=== PATIENT | female | born 1960 | race Caucasian/White ===

== ENCOUNTER 2019-02-25 06:27 | Inpatient (IN) | payer MEDICARE, OTHER ==
[~2019-02-25] VITALS: Ht 154.9 cm; Wt 78.4 kg
[2019-02-25] MEDS ORDERED: SODIUM CHLORIDE 0.9% 2,150 ML IV ONE (06:32)
[2019-02-25] MEDS ORDERED: DOXYCYCLINE HYCLATE 100 MG in DEXTROSE 5%-WATER 100 ML IV ONE (06:45)
[2019-02-25] MEDS ORDERED: 0.9% SODIUM CHLORIDE 10 ML SYRINGE IVP PRN (06:45)
[2019-02-25] MEDS ORDERED: IBUPROFEN 100 MG/5 ML SUSPENSION UDCUP GT ONE (06:45)
[2019-02-25] MEDS ORDERED: PIPERACILLIN SODIUM/TAZOBACTAM 4.5 GM in DEXTROSE 5%-WATER 100 ML IV ONE (06:45)
[2019-02-25] MEDS ORDERED: ACETAMINOPHEN 650 MG/20.3 ML SOLUTION UDCUP GT ONE (06:45)
[2019-02-25] MEDS ORDERED: VANCOMYCIN HCL 1 GM/D5% WATER 200 ML IV ONE ×2 (06:45→10:00)
[2019-02-25] MEDS ORDERED: [UNRECOGNIZED DRUG - CODE] GT (06:46)
[2019-02-25] MEDS ORDERED: FERSL PO (06:46)
[2019-02-25] MEDS ORDERED: LATA7.5D OS (06:46)
[2019-02-25] MEDS ORDERED: LANS30TA4 GT (06:46)
[2019-02-25] MEDS ORDERED: AMIN30LI28 PO (06:46)
[2019-02-25] MEDS ORDERED: LEVE500S9 GT (06:46)
[2019-02-25] MEDS ORDERED: HYDR5TAB7 GT (06:46)
[2019-02-25] MEDS ORDERED: BACL10TA PO (06:47)
[2019-02-25] MEDS ORDERED: BACL10TA GT (06:47)
[2019-02-25 06:54] LABS: HEMATOCRIT 24.1 % (36-46); HEMOGLOBIN 7.5 g/dL (12.0-16.0); MEAN CORPUSCULAR HEMOGLOBIN 24.2 pg (26.0-34.0); MEAN CORPUSCULAR HGB CONC 30.9 G/dL (31.0-37.0); MEAN CORPUSCULAR VOLUME 78 fL (80-100); PLATELET COUNT (AUTO) 531 K/uL (150-450); RED BLOOD CELL COUNT(AUTO) 3.09 MIL/uL (4.00-5.20); RED CELL DISTRIBUTION WIDTH 16.2 % (11.5-14.5)
[2019-02-25 06:58] LABS: ANION GAP 10 mmol/L (8-16); CALCIUM, TOTAL 8.8 mg/dL (8.8-10.5); CARBON DIOXIDE 25 mmol/L (22-29); CHLORIDE 102 mmol/L (98-107); CREATININE 1.06 mg/dL (0.60-1.30); GLOMERULAR FILTR. RATE CALC 53 mL/min (>60); GLUCOSE,RANDOM 152 mg/dL (70-110); POTASSIUM 4.8 mmol/L (3.5-5.1); SODIUM SERUM 137 mmol/L (136-145); UREA NITROGEN, BLOOD 31 mg/dL (7-18)
[2019-02-25 07:04] LABS: B-TYPE NATRIURETIC PEPTIDE 1670 pg/mL (0-100)
[2019-02-25 07:06] LABS: LACTIC ACID 5.4 mmol/L (0.4-2.0)
[2019-02-25 07:11] LABS: ALANINE AMINOTRANSFERASE 42 U/L (12-78); ALKALINE PHOSPHATASE 940 U/L (46-116); ASPARTATE AMINOTRANSFERASE 72 U/L (15-37); BILIRUBIN,TOTAL 0.9 mg/dL (0.1-1.0); CREATINE KINASE, TOTAL ONLY 49 U/L (26-192); TOTAL PROTEIN, SERUM 7.3 g/dL (6.4-8.2)
[2019-02-25 07:26] LABS: APPEARANCE,URINE CLOUDY (CLEAR); BILIRUBIN,URINE NEGATIVE (NEGATIVE); GLUCOSE, URINE (UA) NEGATIVE (NEGATIVE); KETONES,URINE NEGATIVE (NEGATIVE); LEUKOCYTE ESTERASE ,URINE MODERATE (NEGATIVE); NITRATE,URINE NEGATIVE (NEGATIVE); OCCULT BLOOD,URINE SMALL (NEGATIVE); PROTEIN,URINE SEE CONFIRM (NEGATIVE)
[2019-02-25 07:47] LABS: BAND NEUTROPHILS % (MANUAL) 19 % (0-5); LYMPHOCYTES % (MANUAL) 7 % (22-44); MONOCYTES % (MANUAL) 9 % (2-9); SEGMENTED NEUTROPHILS % 65 % (40-70)
[2019-02-25 07:48] LABS: INFLUENZA TYPE A NEGATIVE FOR TYPE A (NEGATIVE); INFLUENZA TYPE B NEGATIVE FOR TYPE B (NEGATIVE)
[2019-02-25 07:57] LABS: BACTERIA,URINE Moderate /HPF (None Seen); SULFOSALICYLIC ACID,URINE 3+ (Negative)
[2019-02-25 07:58] LABS: AMORPHOUS SEDIMENT,UR Moderate /LPF (None Seen); RENAL EPITHELIAL CELLS,URINE Few /LPF (None Seen); SQUAMOUS EPITHELIAL CELL,UR Few /LPF (None Seen)
[2019-02-25 08:32] LABS: ABG A-A DIFF O2 484.5 mmHg (10-20.0); ABG BASE EXCESS -1.1 mmol/L (-2.0-3.0); ABG CARBOXYHEMOGLOBIN 0.5 % (0.0-1.5); ABG HCO3 23.5 mmol/L (22.0-26.0); ABG OXYGEN CONTENT 11.2 mL/dL (15.0-23.0); ABG OXYGEN SATURATION 99.1 % (95.0-98.0); ABG OXYHEMOGLOBIN 98.6 % (94.0-100.0); ABG PCO2 53 mmHg (35-45); ABG PH 7.297 (7.35-7.450); PO2, ARTERIAL BG 171.4 mmHg (79.0-87.0); SOURCE, BLOOD GAS ARTERIAL; TEMPERATURE, FAHRENHEIT, BG 101.2 FAHREN (96.0-98.6)
[2019-02-25 08:33] LABS: ABG TOTAL HEMOGLOBIN 7.8 G/dL (12.0-18.0); O2 DEVICE,BLOOD GAS BIPAP (ROOM AIR); SITE, BLOOD GAS LFT RADIAL
[2019-02-25] MEDS ORDERED: MAGNESIUM HYDROXIDE SUSPENSION 30 ML UDCUP PO PRN (08:45)
[2019-02-25] MEDS ORDERED: ACETAMINOPHEN 325 MG TABLET PO PRN (08:45)
[2019-02-25] MEDS ORDERED: PIPERACILLIN/TAZO 3.375 GM/D5W 50 ML IV SCH (09:00)
[2019-02-25] MEDS: DOCUSATE SODIUM 100 MG CAPSULE PO SCH ×2 (09:00→22:10)
[2019-02-25] MEDS ORDERED: SODIUM CHLORIDE 0.9% 1,000 ML IV ONE (09:00)
[2019-02-25] MEDS: LevETIRAcetam 500 MG TABLET PO SCH ×2 (09:27→22:10)
[2019-02-25] MEDS: FAMOTIDINE 20 MG TABLET PO SCH (09:27)
[2019-02-25] MEDS: ASPIRIN 81 MG CHEWABLE TABLET PO SCH (10:45)
[2019-02-25] MEDS ORDERED: PROPOFOL 1000 MG/ISO-OSM 100 ML IV PRN ×3 (11:00→16:38)
[2019-02-25] MEDS ORDERED: PROPOFOL 1000 MG/ISO-OSM 100 ML IV ONE (11:00)
[2019-02-25] MEDS ORDERED: ROCURONIUM BROMIDE 10 MG/ML 5 ML VIAL IVP ONE (11:00)
[2019-02-25] MEDS: PIPERACILLIN/TAZO 3.375 GM/D5W 50 ML IV SCH ×2 (14:30→20:16)
[2019-02-25] MEDS: HEPARIN SODIUM,PORCINE 5,000 UNITS/ML VIAL SQ SCH (16:29)
[2019-02-25 16:47] VITALS: BP 102/51
[2019-02-25 18:00] VITALS: BP 93/45
[2019-02-25] MEDS ORDERED: SODIUM CHLORIDE 0.9% 250 ML IV ONE (19:11)
[2019-02-25 20:00] VITALS: BP 96/60
[2019-02-25] MEDS ORDERED: VANCOMYCIN HCL 500 MG in DEXTROSE 5%-WATER 100 ML IV SCH (20:00)
[2019-02-25] MEDS: VANCOMYCIN HCL 750 MG in DEXTROSE 5%-WATER 250 ML IV SCH (21:41)
[2019-02-25 22:00] VITALS: BP 109/67
[2019-02-25] MEDS: ATORVASTATIN CALCIUM 20 MG TABLET PO SCH (22:11)
[2019-02-26] VITALS (14 sets, daily range): BP systolic 97–121; BP diastolic 55–75
[2019-02-26] MEDS: HEPARIN SODIUM,PORCINE 5,000 UNITS/ML VIAL SQ SCH ×3 (00:14→15:21)
[2019-02-26] MEDS: PIPERACILLIN/TAZO 3.375 GM/D5W 50 ML IV SCH ×4 (02:01→20:40)
[2019-02-26 04:52] LABS: HEMATOCRIT 22.7 % (36-46); MEAN CORPUSCULAR HEMOGLOBIN 23.3 pg (26.0-34.0); MEAN CORPUSCULAR HGB CONC 29.6 G/dL (31.0-37.0); MEAN CORPUSCULAR VOLUME 79 fL (80-100); PLATELET COUNT (AUTO) 413 K/uL (150-450); RED BLOOD CELL COUNT(AUTO) 2.88 MIL/uL (4.00-5.20); RED CELL DISTRIBUTION WIDTH 16.4 % (11.5-14.5)
[2019-02-26 05:27] LABS: ALBUMIN 1.8 g/dL (3.4-5.0); BILIRUBIN,TOTAL 1.4 mg/dL (0.1-1.0); CALCIUM, TOTAL 8.4 mg/dL (8.8-10.5); CREATININE 1.17 mg/dL (0.60-1.30); MAGNESIUM 1.8 mg/dL (1.80-2.40); TOTAL PROTEIN, SERUM 5.9 g/dL (6.4-8.2)
[2019-02-26 05:32] LABS: HEMOGLOBIN 6.7 g/dL (12.0-16.0)
[2019-02-26 05:35] LABS: BAND NEUTROPHILS % (MANUAL) 33 % (0-5); LYMPHOCYTES % (MANUAL) 6 % (22-44); MONOCYTES % (MANUAL) 5 % (2-9); MYELOCYTES % 1 % (0-0); SEGMENTED NEUTROPHILS % 55 % (40-70)
[2019-02-26] MEDS: VANCOMYCIN HCL 750 MG in DEXTROSE 5%-WATER 250 ML IV SCH ×2 (07:35→20:40)
[2019-02-26] MEDS: ASPIRIN 81 MG CHEWABLE TABLET PO SCH (08:06)
[2019-02-26] MEDS: FAMOTIDINE 20 MG TABLET PO SCH (08:07)
[2019-02-26] MEDS: DOCUSATE SODIUM 100 MG CAPSULE PO SCH ×2 (08:07→20:40)
[2019-02-26] MEDS: LevETIRAcetam 100 MG/ML 5 ML SOLUTION UDCUP PO SCH ×2 (09:20→20:41)
[2019-02-26] MEDS ORDERED: SODIUM CHLORIDE 0.9% 250 ML IV ONE (12:41)
[2019-02-26 15:19] LABS: ABG A-A DIFF O2 152.3 mmHg (10-20.0); ABG BASE EXCESS 0.6 mmol/L (-2.0-3.0); ABG CARBOXYHEMOGLOBIN 0.3 % (0.0-1.5); ABG METHEMOGLOBIN 0.3 % (0.0-1.5); ABG OXYGEN CONTENT 11.6 mL/dL (15.0-23.0); ABG OXYGEN SATURATION 96.5 % (95.0-98.0); ABG OXYHEMOGLOBIN 95.9 % (94.0-100.0); ABG PCO2 39 mmHg (35-45); ABG PH 7.426 (7.35-7.450); ABG TOTAL HEMOGLOBIN 8.5 G/dL (12.0-18.0); O2 DEVICE,BLOOD GAS VENTILATOR (ROOM AIR); PEEP,BG 5 cm H2O; PO2, ARTERIAL BG 87.9 mmHg (79.0-87.0); SITE, BLOOD GAS RT RADIAL; SOURCE, BLOOD GAS ARTERIAL; TEMPERATURE, FAHRENHEIT, BG 99.3 FAHREN (96.0-98.6); VT, ABG 450 ml
[2019-02-26] MEDS: SODIUM CHLORIDE 0.9% 1,000 ML IV SCH (15:29)
[2019-02-26] MEDS: PROPOFOL 1000 MG/ISO-OSM 100 ML IV PRN (18:23)
[2019-02-26] MEDS: ATORVASTATIN CALCIUM 20 MG TABLET PO SCH (20:41)
[2019-02-27] VITALS: BP 100/57
[2019-02-27] MEDS: HEPARIN SODIUM,PORCINE 5,000 UNITS/ML VIAL SQ SCH ×3 (00:30→16:12)
[2019-02-27] MEDS: PIPERACILLIN/TAZO 3.375 GM/D5W 50 ML IV SCH ×4 (02:08→20:18)
[2019-02-27 04:00] VITALS: BP 113/64
[2019-02-27 04:59] LABS: HEMATOCRIT 25.2 % (36-46); HEMOGLOBIN 7.8 g/dL (12.0-16.0); MEAN CORPUSCULAR HEMOGLOBIN 24.2 pg (26.0-34.0); MEAN CORPUSCULAR HGB CONC 30.9 G/dL (31.0-37.0); MEAN CORPUSCULAR VOLUME 78 fL (80-100); PLATELET COUNT (AUTO) 372 K/uL (150-450); RED BLOOD CELL COUNT(AUTO) 3.21 MIL/uL (4.00-5.20); RED CELL DISTRIBUTION WIDTH 16.8 % (11.5-14.5)
[2019-02-27] MEDS: PROPOFOL 1000 MG/ISO-OSM 100 ML IV PRN ×4 (05:19→22:53)
[2019-02-27] MEDS: SODIUM CHLORIDE 0.9% 1,000 ML IV SCH ×2 (05:20→17:21)
[2019-02-27 05:30] LABS: ALBUMIN 1.5 g/dL (3.4-5.0); BILIRUBIN,TOTAL 1.1 mg/dL (0.1-1.0); CALCIUM, TOTAL 7.9 mg/dL (8.8-10.5); CREATININE 1.14 mg/dL (0.60-1.30); POTASSIUM 3.3 mmol/L (3.5-5.1); TOTAL PROTEIN, SERUM 6.2 g/dL (6.4-8.2); VANCOMYCIN,RANDOM 32.3 mcg/mL (25.0-50.0)
[2019-02-27 07:23] LABS: BAND NEUTROPHILS % (MANUAL) 26 % (0-5); LYMPHOCYTES % (MANUAL) 12 % (22-44); SEGMENTED NEUTROPHILS % 62 % (40-70)
[2019-02-27] MEDS: VANCOMYCIN HCL 750 MG in DEXTROSE 5%-WATER 250 ML IV SCH ×2 (07:57→20:18)
[2019-02-27 08:00] VITALS: BP 105/64
[2019-02-27] MEDS ORDERED: POTASSIUM CHLORIDE 20 MEQ ER TABLET PO PRN (08:00)
[2019-02-27] MEDS: POTASSIUM CHL 10 MEQ/WATER 50 ML IV PRN ×6 (08:03→23:21)
[2019-02-27] MEDS ORDERED: FUROSEMIDE 20 MG/2 ML VIAL IVP ONE (09:00)
[2019-02-27] MEDS: DOCUSATE SODIUM 100 MG CAPSULE PO SCH ×2 (09:00→20:19)
[2019-02-27] MEDS: FAMOTIDINE 20 MG TABLET PO SCH (09:09)
[2019-02-27] MEDS: ASPIRIN 81 MG CHEWABLE TABLET PO SCH (09:09)
[2019-02-27] MEDS: LevETIRAcetam 100 MG/ML 5 ML SOLUTION UDCUP PO SCH ×2 (09:10→20:18)
[2019-02-27] MEDS ORDERED: HALOPERIDOL LACTATE 5 MG/ML VIAL IVP PRN (11:45)
[2019-02-27 12:00] VITALS: BP 102/62
[2019-02-27] MEDS ORDERED: SODIUM CHLORIDE 0.9% 250 ML IV ONE (15:46)
[2019-02-27 16:00] VITALS: BP 99/57
[2019-02-27] MEDS: FentaNYL CITRATE PF 500 MCG in DEXTROSE 5%-WATER 90 ML IV PRN (16:18)
[2019-02-27] MEDS ORDERED: PHENYLEPHRINE 200 MG/D5%-WATER 250 ML IV PRN (17:14)
[2019-02-27 20:00] VITALS: BP 109/68
[2019-02-27] MEDS: ATORVASTATIN CALCIUM 20 MG TABLET PO SCH (20:18)
[2019-02-28] VITALS: BP 85/52
[2019-02-28] MEDS: HEPARIN SODIUM,PORCINE 5,000 UNITS/ML VIAL SQ SCH ×3 (00:17→17:44)
[2019-02-28] MEDS: FentaNYL CITRATE PF 500 MCG in DEXTROSE 5%-WATER 90 ML IV PRN ×4 (00:20→19:16)
[2019-02-28] MEDS: PIPERACILLIN/TAZO 3.375 GM/D5W 50 ML IV SCH ×4 (02:28→20:12)
[2019-02-28 04:00] VITALS: BP 111/72
[2019-02-28 05:04] LABS: HEMATOCRIT 24.4 % (36-46); HEMOGLOBIN 7.6 g/dL (12.0-16.0); MEAN CORPUSCULAR HEMOGLOBIN 24.5 pg (26.0-34.0); MEAN CORPUSCULAR HGB CONC 30.9 G/dL (31.0-37.0); MEAN CORPUSCULAR VOLUME 79 fL (80-100); PLATELET COUNT (AUTO) 369 K/uL (150-450); RED BLOOD CELL COUNT(AUTO) 3.08 MIL/uL (4.00-5.20)
[2019-02-28 05:16] LABS: CREATININE 1.25 mg/dL (0.60-1.30)
[2019-02-28 05:17] LABS: ALBUMIN 1.7 g/dL (3.4-5.0); BILIRUBIN,TOTAL 0.8 mg/dL (0.1-1.0); CALCIUM, TOTAL 7.8 mg/dL (8.8-10.5); TOTAL PROTEIN, SERUM 5.8 g/dL (6.4-8.2)
[2019-02-28] MEDS ORDERED: SODIUM CHLORIDE 0.9% 100 ML ONE (05:22)
[2019-02-28 05:42] LABS: BAND NEUTROPHILS % (MANUAL) 6 % (0-5); LYMPHOCYTES % (MANUAL) 15 % (22-44); METAMYELOCYTES % 4 % (0-0); MONOCYTES % (MANUAL) 6 % (2-9); SEGMENTED NEUTROPHILS % 69 % (40-70)
[2019-02-28] MEDS: PROPOFOL 1000 MG/ISO-OSM 100 ML IV PRN ×2 (07:45→17:46)
[2019-02-28] MEDS: VANCOMYCIN HCL 750 MG in DEXTROSE 5%-WATER 250 ML IV SCH ×2 (08:52→10:56)
[2019-02-28] MEDS: ASPIRIN 81 MG CHEWABLE TABLET PO SCH (08:54)
[2019-02-28] MEDS: LevETIRAcetam 100 MG/ML 5 ML SOLUTION UDCUP PO SCH ×2 (08:54→21:21)
[2019-02-28] MEDS: FAMOTIDINE 20 MG TABLET PO SCH (08:54)
[2019-02-28] MEDS: DOCUSATE SODIUM 100 MG CAPSULE PO SCH ×2 (08:55→20:12)
[2019-02-28] MEDS ORDERED: SODIUM CHLORIDE 0.9% 250 ML IV ONE (11:05)
[2019-02-28 12:00] VITALS: BP 102/70
[2019-02-28 16:00] VITALS: BP 104/57
[2019-02-28] MEDS: SODIUM CHLORIDE 0.9% 1,000 ML IV SCH (17:47)
[2019-02-28 20:00] VITALS: BP 115/61
[2019-02-28] MEDS: ATORVASTATIN CALCIUM 20 MG TABLET PO SCH (21:21)
[2019-03-01] VITALS: BP 98/52
[2019-03-01] MEDS ORDERED: SODIUM CHLORIDE 0.9% 250 ML IV ONE ×2 (00:05→23:17)
[2019-03-01] MEDS: HEPARIN SODIUM,PORCINE 5,000 UNITS/ML VIAL SQ SCH ×4 (00:07→23:26)
[2019-03-01] MEDS: PIPERACILLIN/TAZO 3.375 GM/D5W 50 ML IV SCH ×4 (02:39→20:52)
[2019-03-01] MEDS: FentaNYL CITRATE PF 500 MCG in DEXTROSE 5%-WATER 90 ML IV PRN ×2 (03:48→13:31)
[2019-03-01 04:00] VITALS: BP 115/60
[2019-03-01 05:32] LABS: HEMATOCRIT 23.1 % (36-46); HEMOGLOBIN 7.1 g/dL (12.0-16.0); MEAN CORPUSCULAR HEMOGLOBIN 24.5 pg (26.0-34.0); MEAN CORPUSCULAR HGB CONC 30.5 G/dL (31.0-37.0); MEAN CORPUSCULAR VOLUME 80 fL (80-100); PLATELET COUNT (AUTO) 341 K/uL (150-450); RED BLOOD CELL COUNT(AUTO) 2.88 MIL/uL (4.00-5.20); RED CELL DISTRIBUTION WIDTH 17.1 % (11.5-14.5)
[2019-03-01] MEDS: PROPOFOL 1000 MG/ISO-OSM 100 ML IV PRN ×2 (05:36→12:58)
[2019-03-01 06:04] LABS: ALBUMIN 1.5 g/dL (3.4-5.0); BILIRUBIN,TOTAL 0.7 mg/dL (0.1-1.0); CALCIUM, TOTAL 8.4 mg/dL (8.8-10.5); CREATININE 1.23 mg/dL (0.60-1.30); MAGNESIUM 1.9 mg/dL (1.80-2.40); POTASSIUM 3.7 mmol/L (3.5-5.1); TOTAL PROTEIN, SERUM 6.3 g/dL (6.4-8.2); VANCOMYCIN,RANDOM 31.2 mcg/mL (25.0-50.0)
[2019-03-01 07:04] LABS: BAND NEUTROPHILS % (MANUAL) 7 % (0-5); LYMPHOCYTES % (MANUAL) 16 % (22-44); METAMYELOCYTES % 2 % (0-0); MONOCYTES % (MANUAL) 5 % (2-9); SEGMENTED NEUTROPHILS % 70 % (40-70)
[2019-03-01 08:00] VITALS: BP 119/74
[2019-03-01] MEDS ORDERED: VANCOMYCIN HCL 1 GM/D5% WATER 200 ML IV SCH (08:00)
[2019-03-01] MEDS: LevETIRAcetam 100 MG/ML 5 ML SOLUTION UDCUP PO SCH ×2 (08:32→20:53)
[2019-03-01] MEDS: ASPIRIN 81 MG CHEWABLE TABLET PO SCH (08:32)
[2019-03-01] MEDS: FAMOTIDINE 20 MG TABLET PO SCH (08:32)
[2019-03-01] MEDS: DOCUSATE SODIUM 100 MG CAPSULE PO SCH ×2 (09:00→20:53)
[2019-03-01 12:00] VITALS: BP 117/64
[2019-03-01] MEDS: SODIUM CHLORIDE 0.9% 1,000 ML IV SCH (14:29)
[2019-03-01 16:00] VITALS: BP 111/64
[2019-03-01 20:00] VITALS: BP 129/73
[2019-03-01] MEDS: ATORVASTATIN CALCIUM 20 MG TABLET PO SCH (20:53)
[2019-03-02] VITALS: BP 117/65
[2019-03-02] MEDS: PIPERACILLIN/TAZO 3.375 GM/D5W 50 ML IV SCH ×4 (01:34→20:32)
[2019-03-02] MEDS: PROPOFOL 1000 MG/ISO-OSM 100 ML IV PRN ×3 (01:52→18:33)
[2019-03-02 04:00] VITALS: BP 122/76
[2019-03-02 04:43] LABS: HEMATOCRIT 23.7 % (36-46); HEMOGLOBIN 7.2 g/dL (12.0-16.0); MEAN CORPUSCULAR HEMOGLOBIN 24.3 pg (26.0-34.0); MEAN CORPUSCULAR HGB CONC 30.5 G/dL (31.0-37.0); MEAN CORPUSCULAR VOLUME 80 fL (80-100); PLATELET COUNT (AUTO) 363 K/uL (150-450); RED BLOOD CELL COUNT(AUTO) 2.98 MIL/uL (4.00-5.20); RED CELL DISTRIBUTION WIDTH 17.2 % (11.5-14.5)
[2019-03-02 05:14] LABS: ALBUMIN 1.6 g/dL (3.4-5.0); BILIRUBIN,TOTAL 0.7 mg/dL (0.1-1.0); CALCIUM, TOTAL 7.9 mg/dL (8.8-10.5); CREATININE 1.13 mg/dL (0.60-1.30); MAGNESIUM 1.9 mg/dL (1.80-2.40); POTASSIUM 3.6 mmol/L (3.5-5.1); TOTAL PROTEIN, SERUM 5.8 g/dL (6.4-8.2)
[2019-03-02] MEDS: FentaNYL CITRATE PF 500 MCG in DEXTROSE 5%-WATER 90 ML IV PRN ×2 (05:25→20:33)
[2019-03-02 05:42] LABS: VANCOMYCIN,RANDOM 18.6 mcg/mL (25.0-50.0)
[2019-03-02 07:19] LABS: BAND NEUTROPHILS % (MANUAL) 6 % (0-5); EOSINOPHILS % (MANUAL) 2 % (1-6); LYMPHOCYTES % (MANUAL) 14 % (22-44); MONOCYTES % (MANUAL) 7 % (2-9); SEGMENTED NEUTROPHILS % 71 % (40-70)
[2019-03-02 08:00] VITALS: BP 117/54
[2019-03-02] MEDS: ASPIRIN 81 MG CHEWABLE TABLET PO SCH (08:49)
[2019-03-02] MEDS: DOCUSATE SODIUM 100 MG CAPSULE PO SCH ×2 (08:49→20:33)
[2019-03-02] MEDS: FAMOTIDINE 20 MG TABLET PO SCH (08:49)
[2019-03-02] MEDS: HEPARIN SODIUM,PORCINE 5,000 UNITS/ML VIAL SQ SCH ×2 (08:49→18:33)
[2019-03-02] MEDS: LevETIRAcetam 100 MG/ML 5 ML SOLUTION UDCUP PO SCH ×2 (08:56→21:05)
[2019-03-02] MEDS ORDERED: VANCOMYCIN HCL 1 GM/D5% WATER 200 ML IV ONE (10:00)
[2019-03-02 12:00] VITALS: BP 132/70
[2019-03-02 16:00] VITALS: BP 107/64
[2019-03-02] MEDS: SODIUM CHLORIDE 0.9% 1,000 ML IV SCH (18:38)
[2019-03-02 20:00] VITALS: BP 121/70
[2019-03-02] MEDS: FUROSEMIDE 40 MG/4 ML VIAL IVP SCH (20:32)
[2019-03-02] MEDS: ATORVASTATIN CALCIUM 20 MG TABLET PO SCH (20:33)
[2019-03-03] VITALS: BP 116/54
[2019-03-03] MEDS: HEPARIN SODIUM,PORCINE 5,000 UNITS/ML VIAL SQ SCH ×3 (00:11→16:47)
[2019-03-03] MEDS: PIPERACILLIN/TAZO 3.375 GM/D5W 50 ML IV SCH ×4 (02:10→20:18)
[2019-03-03] MEDS: PROPOFOL 1000 MG/ISO-OSM 100 ML IV PRN ×2 (02:49→14:50)
[2019-03-03 04:00] VITALS: BP 120/63
[2019-03-03 05:09] LABS: BASOPHILS % (AUTO) 0.4 % (0.0-2.0); HEMATOCRIT 23.5 % (36-46); HEMOGLOBIN 7.1 g/dL (12.0-16.0); LYMPHOCYTES # (AUTO) 2.1 K/uL (1.0-4.8); LYMPHOCYTES % (AUTO) 10.1 % (22.0-44.0); MEAN CORPUSCULAR HEMOGLOBIN 24.1 pg (26.0-34.0); MEAN CORPUSCULAR HGB CONC 30.4 G/dL (31.0-37.0); MEAN CORPUSCULAR VOLUME 79 fL (80-100); MONOCYTES # (AUTO) 1.7 K/uL (0.1-1.0); MONOCYTES % (AUTO) 8.2 % (2.0-9.0); NEUTROPHILS # (AUTO) 16.7 K/uL (1.8-7.7); NEUTROPHILS % (AUTO) 79.3 % (40.0-70.0); PLATELET COUNT (AUTO) 379 K/uL (150-450); RED BLOOD CELL COUNT(AUTO) 2.96 MIL/uL (4.00-5.20); RED CELL DISTRIBUTION WIDTH 17.2 % (11.5-14.5)
[2019-03-03 05:14] LABS: CALCIUM, TOTAL 8.5 mg/dL (8.8-10.5); CREATININE 1.19 mg/dL (0.60-1.30); POTASSIUM 3.6 mmol/L (3.5-5.1)
[2019-03-03] MEDS ORDERED: SODIUM CHLORIDE 0.9% 250 ML IV ONE (06:24)
[2019-03-03 08:00] VITALS: BP 118/70
[2019-03-03] MEDS: FUROSEMIDE 40 MG/4 ML VIAL IVP SCH (08:51)
[2019-03-03] MEDS: LevETIRAcetam 100 MG/ML 5 ML SOLUTION UDCUP PO SCH ×2 (08:51→20:18)
[2019-03-03] MEDS: FAMOTIDINE 20 MG TABLET PO SCH (08:52)
[2019-03-03] MEDS: ASPIRIN 81 MG CHEWABLE TABLET PO SCH (08:53)
[2019-03-03] MEDS: DOCUSATE SODIUM 100 MG CAPSULE PO SCH ×2 (09:00→20:18)
[2019-03-03 12:00] VITALS: BP 133/81
[2019-03-03 16:00] VITALS: BP 130/76
[2019-03-03] MEDS: SODIUM CHLORIDE 0.9% 1,000 ML IV SCH (16:47)
[2019-03-03 20:00] VITALS: BP 115/55
[2019-03-03] MEDS: ATORVASTATIN CALCIUM 20 MG TABLET PO SCH (20:18)
[2019-03-03] MEDS: FentaNYL CITRATE PF 500 MCG in DEXTROSE 5%-WATER 90 ML IV PRN (21:54)
[2019-03-04] VITALS (14 sets, daily range): BP systolic 102–138; BP diastolic 50–76
[2019-03-04] MEDS: HEPARIN SODIUM,PORCINE 5,000 UNITS/ML VIAL SQ SCH ×3 (00:17→20:06)
[2019-03-04] MEDS: PIPERACILLIN/TAZO 3.375 GM/D5W 50 ML IV SCH ×3 (01:06→20:05)
[2019-03-04] MEDS: PROPOFOL 1000 MG/ISO-OSM 100 ML IV PRN ×2 (01:07→23:04)
[2019-03-04 05:18] LABS: CALCIUM, TOTAL 8.3 mg/dL (8.8-10.5); CREATININE 1.27 mg/dL (0.60-1.30); POTASSIUM 3.1 mmol/L (3.5-5.1); VANCOMYCIN,RANDOM 17.7 mcg/mL (25.0-50.0)
[2019-03-04] MEDS: POTASSIUM CHL 10 MEQ/WATER 50 ML IV PRN ×3 (05:52→08:55)
[2019-03-04 07:31] LABS: BASOPHILS % (AUTO) 0.6 % (0.0-2.0); EOSINOPHILS % (AUTO) 2.7 % (1.0-6.0); HEMATOCRIT 22.9 % (36-46); LYMPHOCYTES # (AUTO) 1.9 K/uL (1.0-4.8); LYMPHOCYTES % (AUTO) 11.1 % (22.0-44.0); MEAN CORPUSCULAR HEMOGLOBIN 24.5 pg (26.0-34.0); MEAN CORPUSCULAR HGB CONC 30.4 G/dL (31.0-37.0); MEAN CORPUSCULAR VOLUME 81 fL (80-100); MONOCYTES # (AUTO) 1.7 K/uL (0.1-1.0); MONOCYTES % (AUTO) 9.8 % (2.0-9.0); NEUTROPHILS # (AUTO) 13.2 K/uL (1.8-7.7); NEUTROPHILS % (AUTO) 75.8 % (40.0-70.0); PLATELET COUNT (AUTO) 400 K/uL (150-450); RED BLOOD CELL COUNT(AUTO) 2.84 MIL/uL (4.00-5.20); RED CELL DISTRIBUTION WIDTH 17.6 % (11.5-14.5)
[2019-03-04] MEDS ORDERED: SODIUM CHLORIDE 0.9% 250 ML IV ONE (08:42)
[2019-03-04] MEDS: FUROSEMIDE 40 MG/4 ML VIAL IVP SCH (08:46)
[2019-03-04] MEDS: DOCUSATE SODIUM 100 MG CAPSULE PO SCH (08:46)
[2019-03-04] MEDS: FAMOTIDINE 20 MG TABLET PO SCH (08:46)
[2019-03-04] MEDS: LevETIRAcetam 100 MG/ML 5 ML SOLUTION UDCUP PO SCH ×2 (08:46→21:00)
[2019-03-04] MEDS: ASPIRIN 81 MG CHEWABLE TABLET PO SCH (08:47)
[2019-03-04] MEDS: VANCOMYCIN HCL 1 GM/D5% WATER 200 ML IV SCH (10:12)
[2019-03-04 15:54] LABS: ABG A-A DIFF O2 137.4 mmHg (10-20.0); ABG BASE EXCESS -2.9 mmol/L (-2.0-3.0); ABG CARBOXYHEMOGLOBIN 0.3 % (0.0-1.5); ABG HCO3 22.2 mmol/L (22.0-26.0); ABG METHEMOGLOBIN 0.3 % (0.0-1.5); ABG OXYHEMOGLOBIN 96.4 % (94.0-100.0); ABG PCO2 42 mmHg (35-45); ABG TOTAL HEMOGLOBIN 8.7 G/dL (12.0-18.0); PO2, ARTERIAL BG 99.4 mmHg (79.0-87.0); SOURCE, BLOOD GAS ARTERIAL; TEMPERATURE, FAHRENHEIT, BG 98.6 FAHREN (96.0-98.6)
[2019-03-04 15:55] LABS: O2 DEVICE,BLOOD GAS VENTILATOR (ROOM AIR); SITE, BLOOD GAS RT RADIAL; VENT MODE, BG SPONTANEOUS (ROOM AIR)
[2019-03-04 15:56] LABS: CPAP, BG 5 cm H2O; PEEP,BG 5 cm H2O; PRESSURE SUPPORT, BG 8 cm H2O; SPONTANEOUS VT, BG 385 ml
[2019-03-04] MEDS: SODIUM CHLORIDE 0.9% 1,000 ML IV SCH (17:55)
[2019-03-04] MEDS: FentaNYL CITRATE PF 500 MCG in DEXTROSE 5%-WATER 90 ML IV PRN (20:48)
[2019-03-04] MEDS: ATORVASTATIN CALCIUM 20 MG TABLET PO SCH (21:00)
[2019-03-05] VITALS: BP 121/64
[2019-03-05] MEDS: HEPARIN SODIUM,PORCINE 5,000 UNITS/ML VIAL SQ SCH ×3 (00:21→14:49)
[2019-03-05] MEDS: DOCUSATE SODIUM 100 MG CAPSULE PO SCH ×3 (00:21→21:00)
[2019-03-05] MEDS: PIPERACILLIN/TAZO 3.375 GM/D5W 50 ML IV SCH ×4 (02:18→20:28)
[2019-03-05 04:00] VITALS: BP 131/83
[2019-03-05 04:58] LABS: CALCIUM, TOTAL 8.4 mg/dL (8.8-10.5); CREATININE 1.29 mg/dL (0.60-1.30); POTASSIUM 3.1 mmol/L (3.5-5.1)
[2019-03-05] MEDS: POTASSIUM CHL 10 MEQ/WATER 50 ML IV PRN ×4 (05:48→15:05)
[2019-03-05] MEDS ORDERED: SODIUM CHLORIDE 0.9% 100 ML ONE (05:49)
[2019-03-05] MEDS: PROPOFOL 1000 MG/ISO-OSM 100 ML IV PRN ×3 (07:42→20:31)
[2019-03-05 08:00] VITALS: BP 105/67
[2019-03-05] MEDS: ASPIRIN 81 MG CHEWABLE TABLET PO SCH (10:17)
[2019-03-05] MEDS: FUROSEMIDE 40 MG/4 ML VIAL IVP SCH (10:18)
[2019-03-05] MEDS: FAMOTIDINE 20 MG TABLET PO SCH (10:18)
[2019-03-05] MEDS: LevETIRAcetam 100 MG/ML 5 ML SOLUTION UDCUP PO SCH ×2 (10:18→21:58)
[2019-03-05 12:00] VITALS: BP 116/57
[2019-03-05] MEDS: FentaNYL CITRATE PF 500 MCG in DEXTROSE 5%-WATER 90 ML IV PRN (13:30)
[2019-03-05] MEDS: SODIUM CHLORIDE 0.9% 1,000 ML IV SCH (13:31)
[2019-03-05 16:00] VITALS: BP 111/58
[2019-03-05 20:00] VITALS: BP 102/59
[2019-03-05] MEDS: ATORVASTATIN CALCIUM 20 MG TABLET PO SCH (22:59)
[2019-03-06] VITALS: BP 107/58
[2019-03-06] MEDS: HEPARIN SODIUM,PORCINE 5,000 UNITS/ML VIAL SQ SCH ×3 (00:44→16:00)
[2019-03-06] MEDS: FentaNYL CITRATE PF 500 MCG in DEXTROSE 5%-WATER 90 ML IV PRN ×2 (00:49→13:51)
[2019-03-06] MEDS: PROPOFOL 1000 MG/ISO-OSM 100 ML IV PRN ×3 (02:23→13:50)
[2019-03-06] MEDS: PIPERACILLIN/TAZO 3.375 GM/D5W 50 ML IV SCH ×4 (02:24→19:35)
[2019-03-06 04:00] VITALS: BP 107/57
[2019-03-06 04:42] LABS: CALCIUM, TOTAL 8.4 mg/dL (8.8-10.5); CREATININE 1.34 mg/dL (0.60-1.30); POTASSIUM 3.3 mmol/L (3.5-5.1)
[2019-03-06] MEDS ORDERED: POTASSIUM CHLORIDE 10% 40 MEQ/30 ML LIQUID UDCUP PO PRN ×2 (05:30)
[2019-03-06 08:00] VITALS: BP 109/63
[2019-03-06] MEDS: VANCOMYCIN HCL 1 GM/D5% WATER 200 ML IV SCH (08:15)
[2019-03-06] MEDS: DOCUSATE SODIUM 100 MG CAPSULE PO SCH ×2 (08:57→21:00)
[2019-03-06] MEDS ORDERED: FUROSEMIDE 20 MG/2 ML VIAL IVP SCH (09:00)
[2019-03-06] MEDS: FAMOTIDINE 20 MG TABLET PO SCH (09:07)
[2019-03-06] MEDS: LevETIRAcetam 100 MG/ML 5 ML SOLUTION UDCUP PO SCH ×2 (09:07→20:33)
[2019-03-06] MEDS ORDERED: SODIUM CHLORIDE 0.9% 250 ML IV ONE (09:14)
[2019-03-06 12:00] VITALS: BP 105/58
[2019-03-06 16:00] VITALS: BP 100/54
[2019-03-06 20:00] VITALS: BP 99/52
[2019-03-06] MEDS: MORPHINE SULFATE 100 MG/NS/PF 100 ML IV PRN (20:01)
[2019-03-07] VITALS: BP 103/50
[2019-03-07] MEDS: PIPERACILLIN/TAZO 3.375 GM/D5W 50 ML IV SCH (02:05)
[2019-03-07] MEDS ORDERED: SODIUM CHLORIDE 0.9% 500 ML IV ONE (03:42)
[2019-03-07 04:00] VITALS: BP 127/59
[2019-03-07 08:00] VITALS: BP 101/50
[2019-03-07 11:00] VITALS: BP 88/48
[2019-03-07] MEDS ORDERED: SODIUM CHLORIDE 0.9% IRRIG BTL 1,000 ML IRRIG ONE (11:33)
[2019-03-07 15:54] VITALS: BP 80/38
[2019-03-07 20:00] VITALS: BP 75/37
[2019-03-08 00:15] VITALS: BP 90/48
[2019-03-08 04:15] VITALS: BP 72/39
[2019-03-08] MEDS: MORPHINE SULFATE 100 MG/NS/PF 100 ML IV PRN (06:04)
[2019-03-08 07:42] VITALS: BP 72/43
[2019-03-08 11:04] VITALS: BP 112/49
[2019-03-08 15:18] VITALS: BP 129/77
[2019-03-08 16:20] VITALS: BP 0/0
== END 2019-03-08 16:40 | disposition expired | DRG 870 ==
LOC: EMS 06:31 → ICU 12:08 → 5N 03-04 17:00 → ICU 03-04 19:00 → 5N 03-07 10:05
PROVIDERS: ADMIT Internal Medicine; ATTEND Internal Medicine
PROC: 5A1955Z Respiratory Ventilation, Greater than 96 Consecutive Hours (ICD-10-PCS; principal; 2019-02-25)
PROC: 0BH17EZ Insertion of Endotracheal Airway into Trachea, Via Natural or Artificial Opening (ICD-10-PCS; 2019-02-25)
PROC: 5A09357 Assistance with Respiratory Ventilation, Less than 24 Consecutive Hours, Continuous Positive Airway Pressure (ICD-10-PCS; 2019-02-25)
PROC: 30233N1 Transfusion of Nonautologous Red Blood Cells into Peripheral Vein, Percutaneous Approach (ICD-10-PCS; 2019-02-26)
PROC: 05HY33Z Insertion of Infusion Device into Upper Vein, Percutaneous Approach (ICD-10-PCS; 2019-02-27)
PROC: B54MZZA Ultrasonography of Right Upper Extremity Veins, Guidance (ICD-10-PCS; 2019-02-27)
PROC: 30233N1 Transfusion of Nonautologous Red Blood Cells into Peripheral Vein, Percutaneous Approach (ICD-10-PCS; 2019-03-04)
DX: A41.9 Sepsis, unspecified organism (principal); G92 Toxic encephalopathy; J96.01 Acute respiratory failure with hypoxia; E43 Unspecified severe protein-calorie malnutrition; J69.0 Pneumonitis due to inhalation of food and vomit; N39.0 Urinary tract infection, site not specified; I24.8 Other forms of acute ischemic heart disease; M35.2 Behcet's disease; E87.0 Hyperosmolality and hypernatremia; D64.9 Anemia, unspecified; I50.9 Heart failure, unspecified; D50.9 Iron deficiency anemia, unspecified; D63.8 Anemia in other chronic diseases classified elsewhere; E87.6 Hypokalemia; F03.90 Unspecified dementia, unspecified severity, without behavioral disturbance, psychotic disturbance, mood disturbance, and anxiety; F41.9 Anxiety disorder, unspecified; I25.10 Atherosclerotic heart disease of native coronary artery without angina pectoris; I77.6 Arteritis, unspecified; F32.9 Major depressive disorder, single episode, unspecified; N18.3 Chronic kidney disease, stage 3 (moderate); Y95 Nosocomial condition; Z51.5 Encounter for palliative care; Z66 Do not resuscitate; Z79.52 Long term (current) use of systemic steroids; Z86.73 Personal history of transient ischemic attack (TIA), and cerebral infarction without residual deficits
CPT/HCPCS: 31500; 36245; 36569; 36600; 70450; 71250; 72192; 74150; 76937; 82805; 83605; 83735; 84132; 86850; 86900; 86901; 86920; 87040; 87070; 87081; 87086; 87205; 87804; 93005; 93306; 94002; 94003; 94660; 94799; 99291; G0378; J1630; J1644; J1940; J2270; J2370; J2543; J2704; J3010; J3370; J3480; J3490; J7030; J7040; J7050; J7060; P9016